=== PATIENT | female | born 1970 | race Hispanic/Latino ===

== ENCOUNTER 2022-02-08 12:57 | Emergency (ER) | payer OTHER ==
[~2022-02-08] VITALS: Ht 157.5 cm; Wt 59.0 kg
[2022-02-08] MEDS ORDERED: AMOXICILLIN/CLAVULANATE K 875 MG TAB PO ONE (13:32)
[2022-02-08] MEDS ORDERED: DIPHTH/TETANUS/ACEL. PERTUSSIS 0.5 ML SYR IM ONE (13:45)
[2022-02-08] MEDS ORDERED: TETANUS/DIPHTHERIA TOX ADULT 0.5 ML SYR ONE (13:45)
[2022-02-08] MEDS ORDERED: LIDOCAINE 1% W/EPINEPHRINE 20 ML VIAL INJ ONE (13:45)
[2022-02-08] MEDS ORDERED: LIDOCAINE 1% W/EPINEPHRINE 20 ML VIAL ONE (13:45)
[2022-02-08] MEDS ORDERED: AUGMENTIN 500-1 EACH PO (14:55)
== END 2022-02-08 15:50 | disposition home or self-care (01) ==
LOC: FSED 13:17
DX: S61.210A Laceration without foreign body of right index finger without damage to nail, initial encounter (principal); W54.0XXA Bitten by dog, initial encounter; Y92.89 Other specified places as the place of occurrence of the external cause
CPT/HCPCS: 90471; 90714; 99283